=== PATIENT | male | born 1980 | race Hispanic/Latino ===

== ENCOUNTER 2016-12-22 07:09 | Emergency (ER) | payer BC ==
[2016-12-22 07:14] VITALS: BMI 26.4
[2016-12-22 07:15] VITALS: BP 110/61; PULSE 70; RESP 18; TEMP 98.4
[2016-12-22 07:28] VITALS: O2SAT 98
[2016-12-22] MEDS ORDERED: Lidocaine 1% Inj (20ml) IJ ONE (07:35)
[2016-12-22] MEDS ORDERED: TDAP Vaccine 0.5 mL Syr IM ONE (07:35)
[2016-12-22] MEDS ORDERED: Lidocaine 1% Inj (20ml) ONE (07:49)
--- NOTE | 2016-12-22 08:31 | ED PDOC ---
Upper Extremity Pain/Injury Time Seen by Provider: 12/22/16 07:19 Chief Complaint (Nursing): Upper Extremity Problem/Injury Chief Complaint (Provider): Right Elbow and Head Injury History Per: Patient History/Exam Limitations: no limitations Onset/Duration Of Symptoms: Hrs Current Symptoms Are (Timing): Still Present Additional Complaint(s): Trevor Reina, a 35 year old female, presents to the ED with a head and right elbow injury post fall. The patient states that earlier this morning he was walking on a wet floor when he slipped and fell backwards hitting the back of his head and cutting his right elbow. He states that he does feel pain in his right elbow but he is still able to move it. Denies loss of consciousness, headache, vomiting, bleeding and other injuries. Past Medical History Reviewed: Historical Data, Nursing Documentation, Vital Signs Vital Signs: Last Vital Signs Temp 98.4 F 12/22/16 07:24 Pulse 70 12/22/16 07:24 Resp 18 12/22/16 07:24 BP 110/61 12/22/16 07:24 Pulse Ox 98 12/22/16 07:24 - Medical History PMH: No Chronic Diseases - Surgical History Surgical History: No Surg Hx - Family History Family History: States: Unknown Family Hx - Allergies Allergies/Adverse Reactions: Allergies Allergy/AdvReac Type Severity Reaction Status Date / Time No Known Allergies Allergy Verified 12/22/16 07:27 Review of Systems ROS Statement: Except As Marked, All Systems Reviewed And Found Negative Gastrointestinal: Negative for: Vomiting Musculoskeletal: Positive for: Other (Laceration to right elbow and right elbow pain.) Neurological: Positive for: Other (Denies loss of consciousness; Head trauma.). Negative for: Headache Physical Exam - Reviewed Nursing Documentation Reviewed: Yes Vital Signs Reviewed: Yes - Physical Exam Appears: Positive for: Non-toxic, No Acute Distress Head Exam: Positive for: ATRAUMATIC, NORMAL INSPECTION, NORMOCEPHALIC Skin: Positive for: Normal Color, Warm, Dry Eye Exam: Positive for: Normal appearance, EOMI, PERRL ENT: Positive for: Normal ENT Inspection Neck: Positive for: Normal, Painless ROM, Supple Cardiovascular/Chest: Positive for: Regular Rate, Rhythm, Chest Non Tender. Negative for: Bradycardia, Tachycardia Respiratory: Positive for: Normal Breath Sounds. Negative for: Wheezing, Respiratory Distress Gastrointestinal/Abdominal: Positive for: Normal Exam, Bowel Sounds, Soft. Negative for: Tenderness Back: Positive for: Normal Inspection Extremity: Positive for: Normal ROM, Other (2cm linear laceration tot he right olecranon area going into fat tissue; No bleeding.). Negative for: Deformity, Swelling Neurologic/Psych: Positive for: Alert, Oriented, Gait - ECG O2 Sat by Pulse Oximetry: 98 (RA) Pulse Ox Interpretation: Normal Medical Decision Making Medical Decision Makin Initial Impression: 35 year old male presenting with elbow injury, laceration of right elbow and head injury Differentials: Elbow fracture vs Elbow strain Initial Plan: * Boostrix 0.5ml IM, Lidocaine 1% (20ml) 5ml IJ * RAD Right elbow * laceration repair * Reevaluation 0815 Clinically there are no indications for a CT of the head/spine of the patient according to [place] CT head rule and Nexus criteria. Xray performed and reviewed shows no acute findings. Scribe Attestation Documented by Alma Higgins acting as a scribe for Jay Jay Kelly MD. Provider Attestation: All medical record entries made by the Scribe were at my direction and personally dictated by me. I have reviewed the chart and agree that the record accurately reflects my personal performance of the history, physical exam, medical decision making, and the department course for this patient. I have also personally directed, reviewed, and agree with the discharge instructions and disposition. Procedures - Time-Out Type of Procedure: Laceration repair Site of Procedure: right elbow Correct Patient: Yes Correct Procedure: Yes Correct Site Marked: Yes X-Ray Marked: Yes Medication Recon: Yes Physician Name: Leticia - Laceration/Wound Repair Right elbow Wound Length (cm): 2 Wound's Depth, Shape: into muscle, linear Wound Explored: clean Betadine Prep?: Yes Anesthesia: 1% Lidocaine Volume Anesthetic (ccs): 5 Wound Repaired With: Sutures Suture Size/Type: 3:0, nylon Number of Sutures: 3 Layer Closure?: No Wound Complexity: Intermediate Sterile Dressing Applied?: No Splint Applied?: No Sling Applied?: Yes Progress: verbal consent obtained Disposition - Clinical Impression Clinical Impression: Sprain of right elbow, Laceration of right elbow, Head injury - Patient ED Disposition Is Patient to be Admitted: No Doctor Will See Patient In The: Office Counseled Patient/Family Regarding: Studies Performed, Diagnosis, Need For Followup - Disposition Referrals: [facility] [Outside] Disposition: Routine/Home Disposition Time: 08:00 Condition: GOOD Additional Instructions: Follow up with your PCP in 2-3 days. See your PCP for suture removal in 10-14 days. Instructions: Care For Your Stitches (ED), Laceration (ED), Head Injury (ED), Elbow Sprain (ED)
--- NOTE | 2016-12-22 10:48 | RAD ---
PROCEDURE: Radiographs of the right elbow. HISTORY: elbow pain injury COMPARISON: No prior. FINDINGS: BONES: Normal. No fracture. JOINTS: Normal. No osteoarthritis. SOFT TISSUES: Normal. JOINT EFFUSION: None. OTHER FINDINGS: None. IMPRESSION: No evidence of acute displaced fracture nor dislocation
== END 2016-12-22 09:00 | disposition home or self-care (01) ==
LOC: H.ER 07:09
DX: S51.011A Laceration without foreign body of right elbow, initial encounter (principal); S09.90XA Unspecified injury of head, initial encounter; S53.401A Unspecified sprain of right elbow, initial encounter; Z23 Encounter for immunization; W01.198A Fall on same level from slipping, tripping and stumbling with subsequent striking against other object, initial encounter; Y93.01 Activity, walking, marching and hiking